=== PATIENT | female | born 1975 | race Two or more races ===

== ENCOUNTER 2019-08-13 09:20 | Emergency (ER) | payer OTHER ==
[~2019-08-13] VITALS: Ht 160 cm; Wt 115.2 kg
--- NOTE | 2019-08-13 09:41 | NUR ---
CAME IN FOR L index finger pain and bruising s/p hitting a chair yesterday, TO ER BED 12, HOOKED TO MONITOR, AWAITING MD WALLS. Addendum: 08/13/19 at 1137 by ANNE MARIE CAME IN FOR L RING FINGER PAIN AND BRUISING S/P HITTING A CHAIR YESTERDAY, TO ER BED 12, HOOKED TO MONITOR, AWAITING MD WALLS.
--- NOTE | 2019-08-13 09:53 | NUR ---
DR BRUNO AT BEDSIDE
--- NOTE | 2019-08-13 11:20 | NUR ---
Patient discharged to home in stable condition. Written and verbal after care instructions given. Patient verbalizes understanding of instruction.
[2019-08-13 11:34] VITALS: BP 110/63
== END 2019-08-13 11:20 | disposition home or self-care (01) ==
LOC: ER 09:20
DX: S62.655A Nondisplaced fracture of middle phalanx of left ring finger, initial encounter for closed fracture (principal); Z88.6 Allergy status to analgesic agent; W22.8XXA Striking against or struck by other objects, initial encounter; Y93.89 Activity, other specified; Y92.89 Other specified places as the place of occurrence of the external cause; Y99.8 Other external cause status
CPT/HCPCS: 73140-TC

== ENCOUNTER 2021-04-02 10:49 | Emergency (ER) | payer OTHER ==
[~2021-04-02] VITALS: Ht 160 cm; Wt 122.5 kg
--- NOTE | 2021-04-02 10:49 | NUR ---
PT BIBRA 89 FROM HOME C/O CHEST PAIN 3/10 RADIATES TO BACK. PT IS AAOX4, NOT IN RESPIRATORY DISTRESS, HOOKED TO OFFSET PRESS OPERATOR, KEPT RESTED AND COMFORTABLE. WILL CONTINUE TO MONITOR.
--- NOTE | 2021-04-02 11:01 | NUR ---
SEEN AND EXAMINED BY .
--- NOTE | 2021-04-02 11:15 | NUR ---
ER PHLEB AT BEDSIDE FOR BLOOD DRAW.
[2021-04-02 11:22] LABS: BASOPHILS % (AUTO) 0.3 % (0.0-2.0); HEMATOCRIT 39 % (33-45); HEMOGLOBIN 12.8 g/dL (11.5-14.8); LYMPHOCYTES # (AUTO) 2.8 K/uL (0.8-4.8); LYMPHOCYTES % (AUTO) 28.3 % (20.0-44.0); MEAN CORPUSCULAR HGB CONC 33 g/dl (31.0-36.0); MEAN CORPUSCULAR VOLUME 88 fL (82-100); MONOCYTES # (AUTO) 0.6 K/uL (0.1-1.30); MONOCYTES % (AUTO) 6.4 % (2.0-12.0); NEUTROPHILS # (AUTO) 6.3 K/uL (1.8-8.9); PLATELET COUNT (AUTO) 332 K/uL (150-450); RED BLOOD CELL COUNT(AUTO) 4.44 MIL/uL (4.0-5.2)
--- NOTE | 2021-04-02 11:25 | NUR ---
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
[2021-04-02 11:32] LABS: CALCIUM, SERUM 8.3 mg/dL (8.5-10.1); CARBON DIOXIDE 24 mmol/L (21-32); CHLORIDE 106 mmol/L (98-107); CREATININE 0.7 mg/dL (0.6-1.3); GLUCOSE 99 mg/dL (74-106); SODIUM SERUM 138 mmol/L (136-145); UREA NITROGEN, BLOOD 15 mg/dL (7-18)
[2021-04-02 11:39] LABS: ALANINE AMINOTRANSFERASE 15 U/L (12-78); ALBUMIN 2.9 g/dL (3.4-5.0); ALKALINE PHOSPHATASE 48 U/L (46-116); ASPARTATE AMINOTRANSFERASE 21 U/L (15-37); BILIRUBIN,DIRECT 0.1 mg/dL (0.0-0.2); BILIRUBIN,TOTAL 0.2 mg/dL (0.2-1.0); TOTAL PROTEIN, SERUM 6.4 g/dL (6.4-8.2)
[2021-04-02] MEDS ORDERED: ACETAMINOPHEN ES 500 MG TABLET ONE (11:55)
[2021-04-02] MEDS ORDERED: ACETAMINOPHEN ES 500 MG TABLET PO ONE (12:00)
--- NOTE | 2021-04-02 12:07 | NUR ---
IV removed. Catheter intact and site benign. Pressure and 4x4 applied to site. No bleeding noted. Patient discharged to home in stable condition. Written and verbal after care instructions given. Patient verbalizes understanding of instruction.
[2021-04-02 12:08] VITALS: BP 109/58
== END 2021-04-02 12:08 | disposition home or self-care (01) ==
LOC: ER 10:51
DX: R07.89 Other chest pain (principal); F41.9 Anxiety disorder, unspecified; Z91.048 Other nonmedicinal substance allergy status
CPT/HCPCS: 36415; 71045-TC; 80048-TC; 80076-TC; 84484-TC; 85025-TC